=== PATIENT | female | born 1950 | race Caucasian/White ===

== ENCOUNTER 2021-03-08 11:14 | Emergency (ER) | payer MEDICARE, OTHER ==
[~2021-03-08 11:14] MED LIST: CYCLOBENZAPRINE10 MG PO; MORPHINE 15MG E15 MG PO; MORPHINE SULFAT10 M1 PO; MS CONTIN15 M1 PO; MS CONTIN15 MG PO; NARCAN4 MG INH; NEURONTIN100 MG PO; NEURONTIN300 MG PO; OXYCODONE-ACET1 EAC1 PO
== END 2021-03-08 15:55 | disposition home or self-care (01) ==
LOC: FER 11:14
DX: S82.141A Displaced bicondylar fracture of right tibia, initial encounter for closed fracture (principal); S72.431A Displaced fracture of medial condyle of right femur, initial encounter for closed fracture; W01.0XXA Fall on same level from slipping, tripping and stumbling without subsequent striking against object, initial encounter; Y92.009 Unspecified place in unspecified non-institutional (private) residence as the place of occurrence of the external cause
CPT/HCPCS: 73564; 73700